=== PATIENT | female | born 1990 | race Caucasian/White ===

== ENCOUNTER 2016-12-22 18:07 | Emergency (ER) | payer OTHER ==
[~2016-12-22] VITALS: Ht 167.6 cm; Wt 72.0 kg
[~2016-12-22 18:07] MED LIST: AZIT250T94 PO; PROM6.25 PO
[2016-12-22 18:10] VITALS: Ht 167.6 cm; Wt 72.0 kg
--- NOTE | 2016-12-22 19:58 | ERD ---
ER Documentation Chief Complaint Date/Time DATE: 12/22/16 TIME: 19:53 Chief Complaint pt bib family with c/o ap for a few days HPI The patient is a 26-year-old female with 2 days of dysuria and increased urinary frequency. She also states that she has some lower abdominal pain for the same duration. She states that she has had a urinary tract infection in the past, and her current symptoms feel the exact same as her previous symptoms when she had a UTI. Her last menstrual period was on 12/15/16. She denies fever, chills, nausea, vomiting, diarrhea, headache, flank pain, dizziness, lightheadedness, vaginal discharge, vaginal complaints of any kind, or any other symptoms or concerns. ROS All systems reviewed and are negative except as per history of present illness. Medications Home Meds Active Scripts Acetaminophen* (Tylenol*) 325 Mg Tablet, 2 TAB PO Q6 Y for PAIN AND OR ELEVATED TEMP, #20 TAB Prov:CELESTINE CARL NP 12/22/16 Phenazopyridine Hcl* (Pyridium*) 100 Mg Tab, 100 MG PO TID Y for URINARY PAIN, # 8 TAB Prov:CELESTINE CARL NP 12/22/16 Nitrofurantoin Monohyd Macrocr* (Macrobid*) 100 Mg Capsr, 100 MG PO BID for 7 Days, CAP Prov:CELESTINE CARL NP 12/22/16 Promethazine w/Codeine* (Phenergan w/Codeine* Syrup) 5 Ml Syrup, 5 ML PO Q4H Y for COUGH, #4 OZ Prov:DEAN CARR PA-C 11/26/15 Azithromycin* (Zithromax*) 250 Mg Tablet, 250 MG PO .ZPACK DIRECTED, #6 TAB TAKE 500 MG (2 TABS) THE FIRST DAY THEN 250 MG (1 TAB) DAYS 2-5 Prov:DEAN CARR PA-C 11/26/15 Allergies Allergies: Coded Allergies: No Known Allergy (Unverified , 12/22/16) PMhx/Soc Medical and Surgical Hx: pt denies Medical Hx, pt denies Surgical Hx History of Surgery: No Anesthesia Reaction: No Hx Neurological Disorder: No Hx Respiratory Disorders: No Hx Cardiac Disorders: No Hx Psychiatric Problems: No Hx Miscellaneous Medical Probl: No Hx Alcohol Use: No Hx Substance Use: No Hx Tobacco Use: No Smoking Status: Never smoker Physical Exam Vitals Vital Signs Date Time Temp Pulse Resp B/P Pulse Ox O2 Delivery O2 Flow Rate FiO2 12/22/16 21:26 99.6 103 18 117/70 98 Room Air 12/22/16 18:10 98.4 78 16 118/70 99 Physical Exam INITIAL VITAL SIGNS: Reviewed by me, afebrile, no tachycardia GENERAL: Alert. Well developed and well nourished. No acute distress. Nontoxic appearing. HEAD: Head is normocephalic. Atraumatic. EYES: EOMI. No scleral icterus. No conjunctival injection. ENT: External ears, nose, and mouth normal. Nasal passages patent. Moist mucous membranes. NECK: Supple. Full range of motion. Trachea midline. No meningismus. RESPIRATORY: No tachypnea. Clear to auscultation bilaterally. No wheezing, rales , or rhonchi. CV: Regular rate and rhythm. No murmurs, rubs, or gallops ABDOMEN: Soft, non-distended, non-tender. No guarding. No rebound. No masses. Bowel sounds normal in all quadrants. BACK: No CVA tenderness. Full ROM. EXTREMITIES: No obvious deformity. No clubbing or cyanosis. No edema. SKIN: Warm and dry. No diaphoresis. No obvious rashes or lesions. NEUROLOGIC: Alert and oriented x 3. Appropriate. Face is symmetric. Speech is normal. Moves all extremities equally. Results 24 hrs Laboratory Tests Test 12/22/16 20:10 Urine Amorphous Urates MANY Urine Bacteria MODERATE Urine Bilirubin NEGATIVE Urine Clarity CLEAR Urine Color LT. YELLOW Urine Glucose NEGATIVE% Urine Hemoglobin TRACE Urine Ketones NEGATIVE Urine Leukocyte Esterase 1+ Urine Microscopic RBC 2-5/HPF Urine Microscopic WBC 0-2/HPF Urine Nitrite NEGATIVE Urine Specific [place] 1.020 Urine Squamous Epithelial Cells FEW Urine Total Protein NEGATIVE Urine Urobilinogen 0.2 E.U./dL Urine pH 8.0 Procedures/MDM Nursing Notes Reviewed Previous Medical Records requested via [employer]. EMERGENCY DEPARTMENT COURSE / MEDICAL DECISION MAKING: The patient comes to the ED secondary to dysuria and increased urinary frequency 2 days. Differential diagnosis upon initial evaluation includes but is not limited to: UTI, pyelonephritis, chlamydia, gonorrhea, urinary retention, bacterial vaginosis, renal colic, ovarian cyst, and others. Given that the patient is afebrile, with normal vital signs, in no acute distress, well appearing, without any vaginal complaints, no CVA tenderness, a benign physical exam, no abdominal tenderness to palpation, and her history of present illness, I have low suspicion at this time for pyelonephritis, STI, urinary retention, bacterial vaginosis, renal colic, ovarian cyst. Urinalysis: urinary tract infection Urine : negative Based on patient's history of present illness and physical examination the decision was made to discharge. There is no evidence of life threatening injuries or illnesses at this time. On re-examination, patient resting in no distress, stable vital signs, reports feeling better and safe for discharge with outpatient follow up with PMD in 1-2 days. Patient given return precautions. Prescriptions Tylenol Pyridium Macrobid Departure Diagnosis: Primary Impression: UTI (urinary tract infection) Urinary tract infection type: acute cystitis Hematuria presence: without hematuria Qualified Code: N30.00 - Acute cystitis without hematuria Condition: Stable CELESTINE CARL NP Dec 22, 2016 19:58 hematuria Qualified Code: N30.00 - Acute cystitis without hematuria Condition: Stable CELESTINE CARL NP Dec 22, 2016 19:58
[2016-12-22 20:28] LABS: ADD UMIC YES; URINE BILIRUBIN (Dip) NEGATIVE (NEGATIVE); URINE BLOOD (Dip) TRACE (NEGATIVE); URINE COLOR LT. YELLOW (YELLOW); URINE GLUCOSE (Dip) NEGATIVE (NEGATIVE); URINE KETONES (Dip) NEGATIVE (NEGATIVE); URINE LEUKOCYTE ESTERASE (Dip) 1+ (NEGATIVE); URINE NITRITE (Dip) NEGATIVE (NEGATIVE); URINE TOTAL PROTEIN (Dip) NEGATIVE (NEGATIVE); URINE UROBILINOGEN (Dip) 0.2 E.U./dL (0.1-1.0)
[2016-12-22 21:00] LABS: BACTERIA,URINE MODERATE; SQUAMOUS EPITHELIAL CELL,UR FEW
[2016-12-22] MEDS ORDERED: NITR-58 PO (21:10)
[2016-12-22] MEDS ORDERED: PHEN-537 PO (21:10)
[2016-12-22] MEDS ORDERED: ACET325T33 PO (21:10)
[2016-12-22 21:26] VITALS: BP 117/70; PULSE 103; RESP 18; TEMP 99.6
== END 2016-12-22 21:26 | disposition home or self-care (01) ==
LOC: FTE 18:07
DX: N30.00 Acute cystitis without hematuria (principal)
CPT/HCPCS: 81001; Z7502; 81003; 99283

== ENCOUNTER 2017-03-27 17:00 | Emergency (ER) | payer OTHER ==
[~2017-03-27] VITALS: Ht 157.5 cm; Wt 78.0 kg
[~2017-03-27 17:00] MED LIST changes: +ACET325T33 PO; +NITR-58 PO; +PHEN-537 PO
[2017-03-27 17:11] VITALS: Ht 157.5 cm; Wt 78.0 kg
[2017-03-27] MEDS ORDERED: KETOROLAC 60 MG INJ IM STA (18:15)
[2017-03-27 18:53] LABS: URINE BLOOD (Dip) POC 2+ (NEGATIVE)
[2017-03-27] MEDS ORDERED: TRAM50TA2 PO (19:01)
[2017-03-27] MEDS ORDERED: CEPH-443 PO (19:01)
[2017-03-27] MEDS ORDERED: IBUP-1542 PO (19:01)
--- NOTE | 2017-03-27 19:04 | ERD ---
ER Documentation Chief Complaint Date/Time DATE: 03/27/17 TIME: 19:02 Chief Complaint BACK PAIN FEW DAYS HPI This 26-year-old female presents with low back pain for last 3 days. She denies any known inciting event such as lifting and denies any fall or trauma. Patient has a history of remote low back pain due to lifting and was treated with physical therapy. She denies any urinary complaints, fevers, vomiting, weakness, bowel bladder incontinence. ROS All systems reviewed and are negative except as per history of present illness. Medications Home Meds Active Scripts Ibuprofen* (Ibuprofen*) 600 Mg Tablet, 600 MG PO Q6, #20 TAB Prov:JENSEN BRIDGES MD 03/27/17 Tramadol HCl (Tramadol HCl) 50 Mg Tablet, 50 MG PO Q4 Y for PAIN, #20 TAB Prov:JENSEN BRIDGES MD 03/27/17 Cephalexin* (Keflex*) 500 Mg Capsule, 500 MG PO QID for 7 Days, CAP Prov:JENSEN BRIDGES MD 03/27/17 Acetaminophen* (Tylenol*) 325 Mg Tablet, 2 TAB PO Q6 Y for PAIN AND OR ELEVATED TEMP, #20 TAB Prov:CELESTINE CARL, DRILL SHARPENER OPERATOR 12/22/16 Phenazopyridine Hcl* (Pyridium*) 100 Mg Tab, 100 MG PO TID Y for URINARY PAIN, # 8 TAB Prov:CELESTINE CARL, DRILL SHARPENER OPERATOR 12/22/16 Nitrofurantoin Monohyd Macrocr* (Macrobid*) 100 Mg Capsr, 100 MG PO BID for 7 Days, CAP Prov:CELESTINE CARL, DRILL SHARPENER OPERATOR 12/22/16 Promethazine w/Codeine* (Phenergan w/Codeine* Syrup) 5 Ml Syrup, 5 ML PO Q4H Y for COUGH, #4 OZ Prov:DEAN CARR PA-C 11/26/15 Azithromycin* (Zithromax*) 250 Mg Tablet, 250 MG PO .ZPACK DIRECTED, #6 TAB TAKE 500 MG (2 TABS) THE FIRST DAY THEN 250 MG (1 TAB) DAYS 2-5 Prov:DEAN CARR PA-C 11/26/15 Allergies Allergies: Coded Allergies: No Known Allergy (Unverified , 03/27/17) PMhx/Soc History of Surgery: No Anesthesia Reaction: No Hx Neurological Disorder: No Hx Respiratory Disorders: No Hx Cardiac Disorders: No Hx Psychiatric Problems: No Hx Miscellaneous Medical Probl: No Hx Alcohol Use: No Hx Substance Use: No Hx Tobacco Use: No Smoking Status: Never smoker Physical Exam Vitals Vital Signs Date Time Temp Pulse Resp B/P Pulse Ox O2 Delivery O2 Flow Rate FiO2 03/27/17 17:11 98.1 100 18 127/71 99 Physical Exam Const: [] Alert, [id number] per Head: Atraumatic Eyes: Normal Conjunctiva ENT: Normal External Ears, Nose and Mouth. Neck: Full range of motion..~ No meningismus. Resp: Clear to auscultation bilaterally Cardio: Regular rate and rhythm, no murmurs Abd: Soft, non tender, non distended. Normal bowel sounds Skin: No petechiae or rashes Back: No midline or flank tenderness. Mild tenderness in the bilateral L4-5 area. No significant CVA tenderness. Patient has a normal gait without deficits or weakness there is no positive straight leg raise test. Ext: No cyanosis, or edema Neur: Awake and alert Psych: Normal Mood and Affect Results 24 hrs Laboratory Tests Test 03/27/17 18:54 Bedside Urine pH (LAB) 7.0 Bedside Urine Protein (LAB) Negative Bedside Urine Glucose (UA) Negative Bedside Urine Ketones (LAB) Negative Bedside Urine Blood 2+ Bedside Urine Nitrite (LAB) Negative Bedside Urine Leukocyte Esterase (L Trace Current Medications Medications (Trade) Dose Ordered Sig/Anil Route PRN Reason Start Time Stop Time Status Last Admin Dose Admin Ketorolac Tromethamine (Toradol) 60 mg ONCE STAT IM 03/27/17 18:15 03/27/17 18:16 DC 03/27/17 18:54 Procedures/MDM Urine shows 1+ leukocytes and hemoglobin. HCG is negative. There is no nitrites. Patient presents with nontraumatic low back pain with signs of UTI. Back pain appears likely musculoskeletal will be given Keflex given the findings on urine although I doubt this because of her pain. Patient will be treated with tramadol and ibuprofen instructions for exercises well. Patient return for fevers, vomiting, new worsening symptoms or primary care doctor this week. The patient was stable with no new complaints during the ER course. Clinically, there is no current evidence to suggest meningitis, sepsis, acute abdomen, pneumonia, acute coronary syndrome, pulmonary embolism, or any other emergent condition appearing to require further evaluation or hospitalization. The patient should certainly return for any new or worsening symptoms per the aftercare instructions. They should otherwise follow-up with her primary care doctor for reevaluation this week. Departure Diagnosis: Primary Impression: UTI (urinary tract infection) Urinary tract infection type: acute cystitis Hematuria presence: without hematuria Qualified Code: N30.00 - Acute cystitis without hematuria Additional Impression: Back pain Back pain location: low back pain Chronicity: acute Back pain laterality: bilateral Sciatica presence: without sciatica Qualified Code: M54.5 - Acute bilateral low back pain without sciatica Condition: Stable Patient Instructions: Understanding Urinary Tract Infections (UTIs), Back Exercises, Lumbar, Back Pain (Acute Or Chronic) Additional Instructions: Urine shows signs of infection but doubt cause of pain. Recommend stretching exercises at home. Follow-up with primary doctor for further evaluation. Recheck for fevers, vomiting, new or worsening symptoms. JENSEN BRIDGES MD March 27, 2017 19:04
[2017-03-27 19:35] VITALS: BP 111/67; PULSE 86; RESP 18; TEMP 98.5
== END 2017-03-27 19:39 | disposition home or self-care (01) ==
LOC: FTE 17:00
DX: N30.00 Acute cystitis without hematuria (principal)
CPT/HCPCS: 81003; 96372; J1885; Z7502

== ENCOUNTER 2018-10-07 19:06 | Emergency (ER) | END 2018-10-07 20:05 | disposition home or self-care (01) ==